=== PATIENT | male | born 1980 | race Hispanic/Latino ===

== ENCOUNTER 2017-11-24 11:07 | Outpatient (CLI) | payer BC | END 2017-11-24 11:08 | disposition home or self-care (01) | LOC: BICRAD 11:07 | PROVIDERS: ATTEND Family Medicine | DX: M25.561 Pain in right knee (principal) | CPT/HCPCS: 36415; 80061; 83036; 84443; 85025 ==

== ENCOUNTER 2020-08-14 12:13 | Outpatient (CLI) | payer BC | END 2020-08-14 12:14 | disposition home or self-care (01) | LOC: BICRAD 12:13 | PROVIDERS: ATTEND Nurse Practitioner Family | DX: M25.571 Pain in right ankle and joints of right foot (principal) ==

== ENCOUNTER 2021-06-25 18:47 | Emergency (ER) | payer OTHER, BC ==
[2021-06-25] MEDS ORDERED: Lidocaine 1% PF 5 ML VIAL ONE (19:07)
[2021-06-25] MEDS ORDERED: Bupivacaine 0.5% 10 ML VIAL ONE (19:07)
[2021-06-25] MEDS ORDERED: Boostrix 0.5 ML (Tdap) VIAL ONE (19:59)
== END 2021-06-25 21:01 | disposition short-term general hospital (02) ==
LOC: ERS 18:47
DX: S68.625A Partial traumatic transphalangeal amputation of left ring finger, initial encounter (principal); W31.89XA Contact with other specified machinery, initial encounter; Y92.69 Other specified industrial and construction area as the place of occurrence of the external cause; Z23 Encounter for immunization
CPT/HCPCS: 90471; 90715; 96372; J3490

== ENCOUNTER 2022-06-21 10:38 | Outpatient (CLI) | payer BC | END 2022-06-21 10:39 | disposition home or self-care (01) | LOC: BICRAD 10:38 | PROVIDERS: ATTEND Nurse Practitioner Family | DX: M79.89 Other specified soft tissue disorders (principal); R07.9 Chest pain, unspecified | CPT/HCPCS: 71046 ==